=== PATIENT | male | born 1965 | race Caucasian/White ===

== ENCOUNTER 2017-01-26 23:50 | Observation (INO) | payer BC ==
--- NOTE | ~2017-01-26 | HP ---
History And Physical [place] [place] [id number] [place]. [address] NAME: CELESTE ELAINE : 63 STATUS : ADM Kim PAT#: [id number] AGE: 51 ADM/REG DATE : 01/27/17 MR#: [id number] REPORT SERV DATE: 01/27/17 DICTATED BY: SANA OROURKE DATE: 01/27/17 REPORT STATUS : Draft TRANSCRIBED BY: MODL DATE: 01/27/17 DATE OF ADMISSION: 01/27/2017 CHIEF COMPLAINT: Right ureteral stones. HISTORY OF PRESENT ILLNESS: Mr. Elaine is a 51-year-old with a history of kidney stones. He presented with acute onset of right flank pain into the [facility]. CT scan showed obstructing stones x2 in the right distal ureter. Attempt was made by the urologist there to perform a retrograde pyelogram and stent placement. That attempt was unsuccessful. He was admitted with a Watts catheter in place. Mr. Elaine wanted to switch the urologist. I agreed to see him as an outpatient today. He was admitted overnight with a Watts catheter not draining. No fevers, chills, nausea or vomiting. His pain is on the right. He has not seen any stones pass. PAST MEDICAL HISTORY: Coronary artery disease, status post angioplasty with stent placement two months ago. He is on Brilinta. PAST MEDICAL HISTORY: Kidney stones, diabetes, and congestive heart failure. FAMILY HISTORY: Coronary artery disease and kidney cancer. SOCIAL HISTORY: . No alcohol, tobacco, or illicit drug use. ALLERGIES: NONE KNOWN. MEDICATIONS: Brilinta, carvedilol, losartan, metformin that has been held, Tresiba, insulin, aspirin, and atorvastatin. REVIEW OF SYSTEMS: Positive for right flank pain. No fevers, chills, nausea or vomiting. He has not seen any stones pass. He has had gross hematuria since the attempted stent placement. PHYSICAL EXAMINATION: VITAL SIGNS: Blood pressure 143/74, temperature 98.0, pulse 72, respirations 18. GENERAL: Pleasant, morbidly obese, 51-year-old, appearing older than stated age, in no acute distress. HEENT: Sclerae are anicteric. Oropharynx is clear. HEART: Regular rhythm. CHEST: Clear anteriorly. ABDOMEN: Soft, nontender, nondistended, obese. No palpable mass. Mild right CVA tenderness. No rebound or guarding. /RECTAL: Watts catheter is in place. It is draining pink urine. Digital rectal exam not performed. LABORATORY DATA: Creatinine is 1.52, hematocrit 36, and white blood cell count 9.4. History And Physical [address] [place]. [address] NAME: CELESTE ELAINE : 63 STATUS : ADM Kim PAT#: [id number] AGE: 51 ADM/REG DATE : 01/27/17 MR#: [id number] REPORT SERV DATE: 01/27/17 DICTATED BY: SANA OROURKE DATE: 01/27/17 REPORT STATUS : Draft TRANSCRIBED BY: MODL DATE: 01/27/17 IMAGING: CTs from the 01/23/2017 were reviewed by me. There are two stones in the right distal ureter, largest is 9 mm. There is moderate right hydroureteronephrosis to the distal ureter. IMPRESSION: 1. Right ureteral stones. 2. Coronary artery disease, status post recent angioplasty with stent placement. PLAN: We will proceed with ureteroscopy with laser lithotripsy, retrograde pyelogram, and right ureteral stent placement. Shock wave lithotripsy and percutaneous nephrolithotomy are not reasonable options given his need to continue anticoagulation. He will be admitted for one day's observation. He understands this stent will be in place for 7-10 days postop. He also understands that a second-look ureteroscopy may be necessary. CASSIE/SHEYLA Sana Orourke M.D. / [id number] CC: Sana Orourke M.D.
--- NOTE | ~2017-01-26 | OP ---
Record Of Operation [facility] [address] [place]. [address] NAME: CELESTE ELAINE : 63 STATUS : ADM Kim PAT#: [id number] AGE: 51 ADM/REG DATE : 01/27/17 MR#: [id number] REPORT SERV DATE: 01/27/17 DICTATED BY: SANA OROURKE DATE: 01/27/17 REPORT STATUS : Draft TRANSCRIBED BY: MODL DATE: 01/27/17 DATE OF PROCEDURE: 01/27/2017 PREOPERATIVE DIAGNOSIS: Right ureteral stones. POSTOPERATIVE DIAGNOSIS: Right ureteral stones. PROCEDURE PERFORMED: 1. Right ureteroscopy, with laser lithotripsy, and basket stone fragment extraction. 2. Cystoscopy with clot evacuation. 3. Cystoscopy with right retrograde pyelogram and right ureteral stent placement. SURGEON: Sana Orourke M.D. ANESTHESIA: General. COMPLICATIONS: None. DRAINS: 1. 22-Cymro three-way Watts catheter. 2. Right double-J ureteral stent, 28 cm. SPECIMENS: Right ureteral stone fragments for chemical analysis. INDICATION: Mr. Elaine is a 51-year-old, with a recent myocardial infarction. He is on Brilinta for cardiac stents. He has had persistent right flank pain for a week. CT scan shows two obstructing stones in the right distal ureter. A urologist elsewhere attempted ureteroscopy and stenting, but was unsuccessful. He has had developed hematuria and clot retention. I assumed his urologic care. TECHNIQUE: Informed consent was obtained, he was brought to the operating room, general anesthesia was administered. Genitals and perineum were prepped and draped in the lithotomy position. Levaquin was given preoperatively. The penis was unremarkable. Prostate was nonobstructive. Within the bladder there was a large formed clot. This was evacuated with the [employer] evacuators. The bladder was inspected. There was no tumor or stone in the bladder. The right UO was edematous and looked fairly beaten up. [place] catheter was advanced, the right UO was cannulated, and a retrograde pyelogram was performed. There was severe narrowing of the right intramural ureter and right distal ureter. At this level there was a calcified stone and severe hydroureter. Additional stone was seen overlying the sacrum. I attempted to pass a 0.035 angled Glidewire in a retrograde fashion for 20 minutes or so. The wire continually curled in what appeared to be a false passage lateral to the obstructing stone. Retrograde pyelogram was repeated. There was no extravasation. Record Of Operation [facility] [address] [place]. [address] NAME: CELESTE ELAINE : 63 STATUS : ADM Kim PAT#: [id number] AGE: 51 ADM/REG DATE : 01/27/17 MR#: [id number] REPORT SERV DATE: 01/27/17 DICTATED BY: SANA OROURKE DATE: 01/27/17 REPORT STATUS : Draft TRANSCRIBED BY: MODLeno DATE: 01/27/17 I removed the cystoscope and passed a rigid ureteroscope. The right ureteral orifice was cannulated, I hugged the medial wall of the ureter, I was able to visualize the leading edge of the stone. A wire was passed up beyond the stone. I removed the ureteroscope, I performed retrograde pyelogram using a Pollack catheter. Contrast was seen in the mid ureter. No extravasation. I used a Isra catheter and placed a second safety wire, this was a 0.035 straight Glidewire. I advanced a rigid ureteroscope over the wire. The right ureter was cannulated. I pushed the obstructing stone back into the dilated ureter. I performed laser lithotripsy of the stone with a 360 micron holmium laser fiber. The stone was dusted. Five or six fragments in the order of 2 mm to 3 mm were basket extracted, dropped in the bladder, and evacuated with the [employer] evacuator. After the distal stone had been treated, I passed the rigid ureteroscope up to the level of the iliac vessels. I was able to visualize the more proximal stone overlying the sacrum. I removed the rigid ureteroscope and passed a 13-Cymro ureteral access sheath up to the lower border of the sacrum. Flexible ureteroscopy was performed. The stone was seen impacted in the ureter. Again, holmium laser lithotripsy was performed. I had fragmented this stone into pieces 2 to 3 mm in size or smaller. I basket extracted all stone fragments from the upper and mid ureter. Retrograde pyelogram was repeated. There was no extravasation, [id number] hydroureteronephrosis persisted. Under fluoroscopic guidance, I placed a 28 cm, 6-Cymro right ureter stent. The dangling string was removed. As he had developed clot retention, I placed a 22-Cymro three-way Watts catheter. CBI was initiated. The catheter irrigated well. His Watts catheter will be removed. He will have 23 hours of CBI. Plan to remove his Watts catheter prior to discharge. He will need to keep his right ureteral stent for 14 days postop. He will need a KUB prior to stent removal. CASSIE/SHEYLA Sana Orourke M.D. / [id number] CC: Sana Orourke M.D.
[~2017-01-26 23:50] MED LIST: ALEVE220 MG PO; AMARYL4 PO; ASAB PO; BRILINTA90 MG PO; COREG12 PO; COZAAR100 MG PO; FLOMAX4 PO; FORTAMET1000 MG PO; HYZAAR 50/12.51 TAB PO; L20 PO; LANTUS SC; LEVEMFLXPN SC; LIPITOR40 PO; NTG150 SL; PCET; PERCOCET 10/3251 TAB; TRESIBA FL100 UNIT/1 SC; TUMSROLL PO
[2017-01-27 02:06] LABS: BASOPHILS 0.1 %; BASOPHILS ABSOLUTE 0.01 10/3/uL (0.0-0.16); EOSINOPHILS 0.7 %; EOSINOPHILS ABSOLUTE 0.07 10/3/uL (0.0-0.53); HEMATOCRIT 36.6 % (40.0-51.0); HEMOGLOBIN 12.6 g/dL (13.6-17.8); IMMATURE GRANULOCYTES 0.2 %; IMMATURE GRANULOCYTES ABSOLUTE 0.02 10/3/uL (0.0-0.11); LYMPHOCYTES 6.3 %; LYMPHOCYTES ABSOLUTE 0.59 10/3/uL (0.67-4.30); MEAN CORPUSCULAR HEMOGLOB 29.9 pg (26.0-34.0); MONOCYTES 6.9 %; MONOCYTES ABSOLUTE 0.65 10/3/uL (0.21-1.20); NEUTROPHILS 85.8 %; NEUTROPHILS ABSOLUTE 8.04 10/3/uL (2.02-8.40); PLATELET COUNT 227 10/3/uL (150-400); RBC DISTRIBUTION WIDTH 12.8 % (12.0-16.0); RED CELL COUNT 4.21 10/6/uL (4.7-6.1); WHITE BLOOD CELLS 9.4 10/3/uL (4.5-10.5)
[2017-01-27 02:07] LABS: MANUAL DIFF NO %; MEAN CORPUS HGB CONC 34.4 g/dL (32.0-36.0); MEAN CORPUSCULAR VOLUME 86.9 fL (80-100)
[2017-01-27 02:22] LABS: A/G RATIO 0.9 (0.7-1.9); ALBUMIN 3.3 G/DL (3.5-5.0); ALKALINE PHOSPHATASE 71 U/L (45-117); BUN (BLOOD UREA NITROGEN) 19 MG/DL (6-23); CALCIUM, SERUM 8.3 MG/DL (8.5-10.4); CHLORIDE, SERUM 101 MMOL/L (96-112); CO2 (CARBON DIOXIDE) 27 MMOL/L (24-34); CREATININE 1.52 MG/DL (0.70-1.30); GFR AFRICAN AMERICAN 60 ML/MIN (>=60); GFR NON AFRICAN AMERICAN 52 ML/MIN (>=60); GLOBULIN 3.5 G/DL (2.5-4.1); GLUCOSE, SERUM 245 MG/DL (60-99); POTASSIUM, SERUM 3.6 MMOL/L (3.5-5.3); SGOT(AST) 6 U/L (5-40); SGPT(ALT) 16 U/L (5-65); SODIUM, SERUM 140 MMOL/L (135-148); TOTAL BILIRUBIN 1.1 MG/DL (0-1.2); TOTAL PROTEIN 6.8 G/DL (6.0-8.5)
[2017-01-27] MEDS ORDERED: COREG12 PO (02:36)
[2017-01-27] MEDS ORDERED: ASAB PO (02:36)
[2017-01-27] MEDS ORDERED: COZAAR100 MG PO (02:37)
[2017-01-27] MEDS ORDERED: NITROSTAT0.4 MG SL (02:37)
[2017-01-27] MEDS ORDERED: FORTAMET1000 MG PO (02:37)
[2017-01-27] MEDS ORDERED: TRESIBA FL100 UNIT/1 SC (02:37)
[2017-01-27] MEDS ORDERED: L20 PO (02:37)
[2017-01-27] MEDS ORDERED: BRILINTA90 MG PO (02:38)
[2017-01-27] MEDS ORDERED: LIPITOR40 PO (02:38)
[2017-01-27] MEDS ORDERED: FLOMAX4 PO (02:38)
[2017-01-27] MEDS ORDERED: PCET PO (02:38)
[2017-01-27] MEDS ORDERED: PR25 PO (02:39)
[2017-01-29] MEDS ORDERED: CIP2 PO (10:16)
[2017-01-29] MEDS ORDERED: FLOMAX4 PO (10:17)
[2017-01-29] MEDS ORDERED: PYR100B PO (10:17)
[2017-02-02 15:56] LABS: STONE COMPOSITION TWO DNR (())
== END 2017-01-29 12:30 | disposition home or self-care (01) ==
LOC: ER 23:50 → CDU1 01-27 02:14 → CDU2 01-27 02:33 → SDC/OF 01-27 10:00 → 4SO 01-27 17:43
PROVIDERS: Specialist; Urology
PROC: 0T768DZ Dilation of Right Ureter with Intraluminal Device, Via Natural or Artificial Opening Endoscopic (ICD-10-PCS; 2017-01-27)
PROC: 0TF68ZZ Fragmentation in Right Ureter, Via Natural or Artificial Opening Endoscopic (ICD-10-PCS; principal; 2017-01-27 17:15)
DX: N20.1 Calculus of ureter (principal); I25.10 Atherosclerotic heart disease of native coronary artery without angina pectoris; I11.0 Hypertensive heart disease with heart failure; I50.22 Chronic systolic (congestive) heart failure; I25.2 Old myocardial infarction; Z79.899 Other long term (current) drug therapy; E78.2 Mixed hyperlipidemia; E11.9 Type 2 diabetes mellitus without complications; K21.9 Gastro-esophageal reflux disease without esophagitis; G47.33 Obstructive sleep apnea (adult) (pediatric)
CPT/HCPCS: 36415; 74420; 80053; 82365; 82962; 85025; 86850; 86900; 86901; 96374; 96376; 99284; A9270-GY; C1758; C1769; C1892; C1894; C2617; G0378; J0330; J1170; J2250; J2370; J2405; J2710; J3010; Q9967